=== PATIENT | female | born 1980 | race Caucasian/White ===

== ENCOUNTER 2017-06-16 16:45 | Emergency (ER) | payer MEDICAID ==
[~2017-06-16] VITALS: Ht 162.6 cm; Wt 73.9 kg
[~2017-06-16 16:45] MED LIST: APAP/HYDROCODON1 T13 PO; COL100 PO; GAS RELIEF 8080 MG PO
[2017-06-16 19:27] VITALS: BP 132/73
== END 2017-06-16 19:27 | disposition home or self-care (01) ==
LOC: ED 16:45
DX: L60.0 Ingrowing nail (principal); R03.0 Elevated blood-pressure reading, without diagnosis of hypertension
CPT/HCPCS: J2001

== ENCOUNTER 2017-12-15 20:29 | Emergency (ER) | payer MEDICAID ==
[~2017-12-15] VITALS: Ht 129.5 cm; Wt 81.9 kg
[2017-12-15 21:00] VITALS: Ht 129.5 cm; Wt 81.9 kg
[2017-12-15 22:17] LABS: UA SPECIFIC GRAVITY 1.015 (1.005-1.035); microscopic required? YES; urine erythrocyte 1+ (NEGATIVE)
[2017-12-15 23:38] VITALS: BP 129/79
== END 2017-12-15 23:38 | disposition home or self-care (01) ==
LOC: ED 20:29
PROVIDERS: Emergency Medicine
DX: K21.9 Gastro-esophageal reflux disease without esophagitis (principal); G89.29 Other chronic pain; R10.2 Pelvic and perineal pain; Z90.49 Acquired absence of other specified parts of digestive tract
CPT/HCPCS: J1885

== ENCOUNTER 2020-05-24 08:47 | Emergency (ER) | payer MEDICAID ==
[~2020-05-24] VITALS: Ht 154.9 cm; Wt 84.4 kg
[2020-05-24 09:20] LABS: PLATELET COUNT 271 x10^3mcL (130-400); RED CELL DISTRIBUTION WIDTH 12.7 % (11.5-14.5)
[2020-05-24 09:34] LABS: BASOPHIL % 2.5 % (0-2)
[2020-05-24 10:06] LABS: CALCIUM 9.1 mg/dL (8.5-10.1); CHLORIDE SERUM 101 mmol/L (98-107); CREATININE SERUM 0.8 mg/dL (0.6-1.0); GFR1 > 60 mL/min; GLUCOSE SERUM 102 mg/dL (74-106); POTASSIUM SERUM 3.8 mmol/L (3.5-5.1); SODIUM SERUM 138 mmol/L (136-145)
[2020-05-24 10:09] LABS: ALBUMIN 3.8 g/dL (3.4-5.0); ALKALINE PHOSPHATASE 86 U/L (46-116); ALT/SGPT 39 U/L (14-59); AMYLASE 43 U/L (25-115); AST/SGOT 20 U/L (15-37); BILIRUBIN TOTAL 0.4 mg/dL (0.20-1.00); LIPASE 70 IU/L (73-393); TOTAL PROTEIN, SERUM 7.7 g/dL (6.4-8.2)
[2020-05-24 13:34] VITALS: BP 116/67
== END 2020-05-24 14:27 | disposition home or self-care (01) ==
LOC: ED 08:47
PROVIDERS: Specialist
DX: R10.9 Unspecified abdominal pain (principal); Z98.890 Other specified postprocedural states; Z90.89 Acquired absence of other organs
CPT/HCPCS: J1885; J3010